=== PATIENT | female | born 1975 | race Caucasian/White ===

== ENCOUNTER 2018-03-30 19:29 | Emergency (ER) | payer BC ==
[~2018-03-30] VITALS: Ht 160 cm; Wt 44.9 kg
[2018-03-30 19:53] VITALS: Ht 160 cm; Wt 44.9 kg
[2018-03-30 20:52] VITALS: BP 97/64
== END 2018-03-30 20:52 | disposition home or self-care (01) ==
LOC: ED 19:29
DX: B34.9 Viral infection, unspecified (principal); H10.89 Other conjunctivitis; Z86.2 Personal history of diseases of the blood and blood-forming organs and certain disorders involving the immune mechanism